=== PATIENT | female | born 1945 | race Caucasian/White ===

== ENCOUNTER 2016-07-21 15:43 | Observation (INO) | payer MEDICARE, MEDICAID ==
[~2016-07-21 15:43] MED LIST: ECOT81TA2 PO; FISH300C2 PO; LISI40TA PO; POTA-243 PO
[2016-07-21 15:45] VITALS: BP 180/84; PULSE 89; RESP 20; TEMP 98.5; O2SAT 98
--- NOTE | 2016-07-21 15:50 | PD ---
Physical Exam Date Seen by Provider: July 21, 2016 Time Seen by Provider: 15:47 Narrative 70 year old female presents to the emergency department for lightheadedness, dizziness intermittently for 2.5 months. She reports syncopal episode 05/29/16. She has history of confusion, at baseline. She reports headache for approximately 1 week. She states headache has been intermittent. Vital signs reviewed. Patient awaiting bed placement. Data Data Last Documented VS Vital Signs Date Time Temp Pulse Resp B/P Pulse Ox O2 Delivery O2 Flow Rate FiO2 07/21/16 15:45 98.5 89 20 180/84 98 MDM Supervised Visit with MARIFER: Berna Campoverde July 21, 2016 15:50
--- NOTE | 2016-07-21 16:33 | PD ---
HPI Chief Complaint: Dizziness Time Seen by Provider: 16:31 Travel History International Travel<30 days: No Contact w/Intl Traveler<30days: No Traveled to known affect area: No History of Present Illness HPI 70-year-old female with history of HTN, HLD, ND, AAA, CVA 2013 presents to the ED for evaluation of 2-3 month history of intermittent lightheadedness and dizziness. Patient also endorses left-sided dull, intermittent headache 1 week. He states that the dizziness is worse when rising from a sitting position. She also complains of left sided chest pain when lying down, accompanied by palpitations. Patient denies nausea, vomiting, diaphoresis, radiation of the pain. She states that this improved by sitting up and breathing deeply. She denies numbness, tingling, weakness, limitations to range of motion of the extremities. Denies difficulties with ambulation. Denies abdominal pain, dysuria. Patient's [id number] at bedside and states that the patient had an episode of syncope in May that was never evaluated, also states that the patient's speech is halting and broken as compared to normal. PFSH Past Medical History AAA: Yes Arthritis: No Asthma: No Blood Disorders: No Heart Rhythm Problems: No Cancer: No Cardiac Catheterization: No Cardiovascular Problems: Yes (previous chest pain episod 04/20) High Cholesterol: Yes Chest Pain: Yes Congestive Heart Failure: No COPD: No Cerebrovascular Accident: Yes (TIA 7 YEARS AGO) Diabetes: No Diminished Hearing: No Endocrine: No Gastrointestinal Disorders: Yes GERD: No Genitourinary: No Headaches: Yes Hepatitis: Yes (IS A HEPATITIS CARRIER) Hiatal Hernia: No Hypertension: Yes Immune Disorder: No Musculoskeletal: Yes (BACK PROBLEMS) Neurologic: Yes (CVA 12/2013) Psychiatric: No Reproductive: No Respiratory: No Migraines: Yes Myocardial Infarction: Yes Seizures: No Sleep Apnea: No Thyroid Disease: Yes (HYPO) Ulcer: No Menopausal: Yes : 7 Para: 6 : 1 Tubal Ligation: Yes Past Surgical History Abdominal Surgery: Yes (GALLBLADDER REMOVAL) AICD: No Cardiac Surgery: No Cholecystectomy: Yes Coronary Artery Bypass Graft: No Ear Surgery: No Endocrine Surgery: No Eye Surgery: No Genitourinary Surgery: Yes (KIDNEY STENT) Gynecologic Surgery: Yes (HYSTERECTOMY) Hysterectomy: Yes Joint Replacement: No Neurologic Surgery: Yes (C2-C6 FUSION) Oral Surgery: No Pacemaker: No Thoracic Surgery: No Other Surgery: Yes (KIDNEY SURGERY "FOR BLOCKAGE") Social History Alcohol Use: Yes (SOCIALLY) Tobacco Use: No Substance Use: No Allergies-Medications (Allergen,Severity, Reaction): Coded Allergies: Sulfa (Verified Allergy, Severe, 07/21/16) Reported Meds & Prescriptions Reported Meds & Active Scripts Active Ecotrin (Aspirin) 81 Mg Tabec 81 Mg PO DAILY 30 Days Reported Prinivil 40 mg (Lisinopril) 40 Mg Tab 1 Tab PO BID K-Dur (Potassium Chloride) 10 Meq Tabcr 10 Meq PO DAILY Fish Oil 300 Mg Cap 300 Mg PO DAILY Review of Systems Except as stated in HPI: all other systems reviewed are Neg Physical Exam Narrative GENERAL: Well-nourished, well-developed [place]ian female in no acute distress. SKIN: Focused skin assessment warm/dry. HEAD: Normocephalic. EYES: No scleral icterus. No injection or drainage. PERRLA. EOMI. ENT: Pearly gaines tympanic membranes bilaterally. Oropharynx without erythema, edema or exudate. NECK: Supple, trachea midline. No JVD or lymphadenopathy. CARDIOVASCULAR: Regular rate and rhythm without murmurs, gallops, or rubs. 2+ DP and radial pulses bilaterally. RESPIRATORY: Breath sounds clear and equal bilaterally. No accessory muscle use. GASTROINTESTINAL: Abdomen soft, non-tender, nondistended. Active bowel sounds. MUSCULOSKELETAL: No cyanosis, or edema. The patient is noted to ambulate with a normal gait. NEUROLOGICAL: Awake and alert. Cranial nerves II through XII intact. Motor and sensory grossly within normal limits. Five out of 5 muscle strength in all muscle groups. Halting speech. No pronator drift. No ataxia by finger-to- nose testing. BACK: Nontender without obvious deformity. No CVA tenderness. Data Data Last Documented VS Vital Signs Date Time Temp Pulse Resp B/P Pulse Ox O2 Delivery O2 Flow Rate FiO2 07/21/16 19:12 78 16 165/84 100 Room Air 07/21/16 15:45 98.5 Orders Electrocardiogram (07/21/16 16:45) Complete Blood Count With Diff (07/21/16 16:45) Comprehensive Metabolic Panel (07/21/16 16:45) Creatine Kinase (Cpk) (07/21/16 16:45) Prothrombin Time / Inr (Pt) (07/21/16 16:45) Act Partial Throm Time (Ptt) (07/21/16 16:45) Troponin I (07/21/16 16:45) Urinalysis - C+S If Indicated (07/21/16 16:45) Ct Brain W/O Iv Contrast(Rout) (07/21/16 16:45) Ecg Monitoring (07/21/16 16:45) Iv Access Insert/Monitor (07/21/16 16:45) Oximetry (07/21/16 16:45) Sodium Chloride 0.9% Flush (Ns Flush) (07/21/16 16:45) Sodium Chlor 0.9% 1000 Ml Inj (Ns 1000 M (07/21/16 16:45) Potassium Chloride (Kcl) (07/21/16 18:45) Urine Culture (07/21/16 17:35) Labs Laboratory Tests Test 07/21/16 07/21/16 16:58 17:35 White Blood Count 7.1 TH/MM3 Red Blood Count 4.31 MIL/MM3 Hemoglobin 11.7 GM/DL Hematocrit 35.8 % Mean Corpuscular Volume 83.2 FL Mean Corpuscular Hemoglobin 27.2 PG Mean Corpuscular Hemoglobin 32.7 % Concent Red Cell Distribution Width 14.1 % Platelet Count 253 TH/MM3 Mean Platelet Volume 8.3 FL Neutrophils (%) (Auto) 64.0 % Lymphocytes (%) (Auto) 20.8 % Monocytes (%) (Auto) 7.3 % Eosinophils (%) (Auto) 7.3 % Basophils (%) (Auto) 0.6 % Neutrophils # (Auto) 4.6 TH/MM3 Lymphocytes # (Auto) 1.5 TH/MM3 Monocytes # (Auto) 0.5 TH/MM3 Eosinophils # (Auto) 0.5 TH/MM3 Basophils # (Auto) 0.0 TH/MM3 CBC Comment DIFF FINAL Differential Comment Prothrombin Time 10.3 SEC Prothromb Time International 0.9 RATIO Ratio Activated Partial 23.4 SEC Thromboplast Time Sodium Level 143 MEQ/L Potassium Level 3.3 MEQ/L Chloride Level 103 MEQ/L Carbon Dioxide Level 33.5 MEQ/L Anion Gap 7 MEQ/L Blood Urea Nitrogen 25 MG/DL Creatinine 1.14 MG/DL Estimat Glomerular Filtration 47 ML/MIN Rate Random Glucose 100 MG/DL Calcium Level 9.3 MG/DL Total Bilirubin 0.4 MG/DL Aspartate Amino Transf 18 U/L (AST/SGOT) Alanine Aminotransferase 19 U/L (ALT/SGPT) Alkaline Phosphatase 84 U/L Total Creatine Kinase 89 U/L Troponin I LESS THAN 0.02 NG/ML Total Protein 8.6 GM/DL Albumin 4.1 GM/DL Urine Color YELLOW Urine Turbidity CLEAR Urine pH 7.5 Urine Specific [place] 1.020 Urine Protein NEG mg/dL Urine Glucose (UA) NEG mg/dL Urine Ketones NEG mg/dL Urine Occult Blood NEG Urine Nitrite NEG Urine Bilirubin NEG Urine Urobilinogen 2.0 MG/DL Urine Leukocyte Esterase NEG Urine RBC LESS THAN 1 /hpf Urine WBC LESS THAN 1 /hpf Urine Squamous Epithelial 1 /hpf Cells Urine Bacteria RARE /hpf Urine Hyaline Casts 3 /lpf Microscopic Urinalysis Comment CATH-CULTURE IND MDM Medical Decision Making Medical Screen Exam Complete: Yes Emergency Medical Condition: Yes Differential Diagnosis Vertigo versus TIA versus CVA versus ICH versus electrolyte abnormality versus dehydration versus UTI versus other Narrative Course 70-year-old female with history of HTN, HLD, ND, AAA, CVA 2013 presents to the ED for evaluation of 2-3 month history of intermittent lightheadedness and dizziness. Patient also endorses left-sided dull, intermittent headache 1 week. He states that the dizziness is worse when rising from a sitting position. She also complains of left sided chest pain when lying down, accompanied by palpitations. Patient denies nausea, vomiting, diaphoresis, radiation of the pain. She states that this improved by sitting up and breathing deeply. She denies numbness, tingling, weakness, limitations to range of motion of the extremities, difficulties with ambulation. Denies abdominal pain or dysuria. Patient's [id number] at bedside and states that the patient had an episode of syncope in May that was never evaluated, also states that the patient's speech is halting and broken as compared to normal. BP 180/84 on presentation. Physical exam reveals a nontoxic-appearing [place]ian female in no acute distress. No focal neural deficits. Subtle aphasia. Chest is clear to auscultation bilaterally. No appreciable M/R/G. Abdomen soft , nontender. No CVA tenderness. Equal pulses in the distal extremities. No lower extremity edema. Patient ambulates with a normal gait. IV was established. Patient was placed on continuous monitoring. EKG: rate 69, sinus rhythm. VT interval 187, QRS 102, QTC 402. LAD. No ST elevations or depressions. Reviewed by Dr. Bravo Cardiac enzymes: Negative 1. CBC: WBC 7.1. Hemoglobin 1.7. CMP: Potassium 3.3. BUN 25, creatinine 1.14. UA: rare bacteria. Culture pending. CT: No acute disease. Stable exam without evidence of acute infarct, hemorrhage , mass or edema per radiology read. Patient states that she takes an aspirin daily. Concerned for TIA. Plan to admit to medicine with neuro consult. Spoke to the patient and her daughter-in- law who are agreeable to this plan. Call placed to [facility]. I spoke with Dr. Noguera who agrees to accept the patient to the medicnie service. Please see medicine and neuro notes for disposition. Giovana Mas July 21, 2016 16:33
[2016-07-21] MEDS ORDERED: SODIUM CHLORIDE 0.9% FLUSH 10 ML FLUSH IVF PRN (16:45)
[2016-07-21] MEDS ORDERED: SODIUM CHLOR 0.9% 1000 ML INJ 1,000 ML IV SCH (16:45)
[2016-07-21 16:55] VITALS: O2SAT 98
[2016-07-21 17:16] LABS: AUTOMATED NEUTROPHIL # 4.6 TH/MM3 (1.8-7.7); BASOPHIL % 0.6 % (0.0-2.0); EOSINOPHIL # 0.5 TH/MM3 (0-0.4); EOSINOPHIL % 7.3 % (0.0-4.0); HEMATOCRIT 35.8 % (35.0-46.0); HEMO FLAGS DIFF FINAL; LYMPH % 20.8 % (9.0-44.0); LYMPHOCYTE # 1.5 TH/MM3 (1.0-4.8); MEAN CELL VOLUME 83.2 FL (80.0-100.0); MEAN CORPUSCULAR HEMOGLOBIN 27.2 PG (27.0-34.0); MEAN CORPUSCULAR HGB CONC 32.7 % (32.0-36.0); MONO % 7.3 % (0.0-8.0); PLATELET COUNT 253 TH/MM3 (150-450); RED BLOOD COUNT 4.31 MIL/MM3 (4.00-5.30); RED CELL DISTRIBUTION WIDTH 14.1 % (11.6-17.2); WHITE BLOOD COUNT 7.1 TH/MM3 (4.0-11.0)
[2016-07-21 17:29] LABS: APTT (PATIENT) 23.4 SEC (24.3-30.1); INTERNATIONAL NORMALIZED RATIO 0.9 RATIO; PROTHROMBIN TIME - PATIENT 10.3 SEC (9.8-11.6)
--- NOTE | 2016-07-21 17:38 | RADRPT ---
EXAM DATE/TIME: 07/21/2016 17:11 [facility] COMPARISON: CT BRAIN W/O CONTRAST, March 04, 2014, 23:52. INDICATIONS : Left sided headache for 2 weeks RADIATION DOSE: 39.63 CTDIvol (mGy) MEDICAL HISTORY : Cerebrovascular disease. Cardiovascular disease Aneurysm, abdominal. SURGICAL HISTORY : Cholecystectomy. Hysterectomy. ENCOUNTER: Initial ACUITY: 2 weeks PAIN SCALE: 6/10 LOCATION: Left cranial TECHNIQUE: Multiple contiguous axial images were obtained of the head. Using automated exposure control and adj ustment of the mA and/or kV according to patient size, radiation dose was kept as low as reasonably a chievable to obtain optimal diagnostic quality images. FINDINGS: CEREBRUM: The ventricles are normal for age. No evidence of midline shift, mass lesion, hemorrhage or acute in farction. No extra-axial fluid collections are seen. POSTERIOR FOSSA: The cerebellum and brainstem are intact. The 4th ventricle is midline. The cerebellopontine angle i s unremarkable. EXTRACRANIAL: The visualized portion of the orbits is intact. SKULL: The calvaria is intact. No evidence of skull fracture. CONCLUSION: No acute disease. Stable exam without evidence of acute infarct, hemorrhage, mass or edema. Jmaes Allison MD on July 21, 2016 at 17:35 Board Certified Radiologist. This report was verified electronically.
[2016-07-21 17:48] LABS: ALT (GPT) 19 U/L (10-53); ANION GAP 7 MEQ/L (5-15); AST (GOT) 18 U/L (15-37); BICARBONATE 33.5 MEQ/L (21.0-32.0); BLOOD UREA NITROGEN 25 MG/DL (7-18); CHLORIDE 103 MEQ/L (98-107); GLOMERULAR FILTRATION RATE 47 ML/MIN (>89); POTASSIUM 3.3 MEQ/L (3.5-5.1); SODIUM (NA) 143 MEQ/L (136-145)
[2016-07-21 17:51] LABS: ALKALINE PHOSPHATASE 84 U/L (45-117); TOTAL BILIRUBIN ADULT 0.4 MG/DL (0.2-1.0)
[2016-07-21 17:53] LABS: CREATINE KINASE 89 U/L (26-192)
[2016-07-21 18:05] LABS: BACTERIA, URINE RARE /hpf; BLOOD, URINE NEG (NEG); GLUCOSE,URINE NEG (NEG); HYALINE CAST, URINE 3 /lpf (RARE); KETONE, URINE NEG (NEG); NITRITE,URINE NEG (NEG); PH, URINE 7.5 (5.0-8.5); SQUAMOUS EPITHELIAL CELL URINE 1 /hpf (0-5); URINE COLOR YELLOW (YELLW/STRAW)
[2016-07-21 18:43] LABS: COMMENT (UR) CATH-CULTURE IND; CULTURE IF INDICATED CATH CULTURE IND
[2016-07-21] MEDS ORDERED: POTASSIUM CHLORIDE 20 MEQ CONTROLLED RELEASE TAB PO ONE (18:45)
[2016-07-21 19:12] VITALS: BP 165/84; PULSE 78; RESP 16; O2SAT 100
[2016-07-21] MEDS ORDERED: SODIUM CHLORIDE 0.9% FLUSH 10 ML FLUSH IV FLUSH PRN (20:00)
[2016-07-21 20:51] VITALS: BP 175/84; PULSE 78; RESP 19; TEMP 98.3; O2SAT 100
[2016-07-21 20:56] VITALS: PULSE 79
[2016-07-21] MEDS ORDERED: SODIUM CHLORIDE 0.9% FLUSH 10 ML FLUSH IV FLUSH SCH (21:00)
[2016-07-21 22:35] LABS: HEMOGLOBIN A1a 1.4 %; HEMOGLOBIN A1b 1.8 %; HEMOGLOBIN Ao 84.2 %; HEMOGLOBIN LA1C 2.2 %; HEMOGLOBIN P3 5.6 %
[2016-07-21 23:12] VITALS: BP 149/69; PULSE 80; RESP 19; TEMP 98.1; O2SAT 98
--- NOTE | 2016-07-22 02:35 | HHI.HP ---
HPI Service [facility] Primary Care Physician Non-Staff Admission Diagnosis dizziness, aphasia, possible TIA Diagnoses: Chief Complaint: dysphagia and dizziness Travel History International Travel<30 Days: No Contact w/Intl Traveler <30 Da: No Traveled to Known Affected Are: No History of Present Illness This is a 70 year old female patient with a past medical history which includes CVA x2, HTN, hyperlipidemia and reports she may have hepatitis C. Patient is a poor historian and only able to provide limited information. Information gathered from patient as well as prior computerized charting. Patient reports that she hasn't been, "feeling good for a couple days then yesterday got worse. " When patient asked to explain she reports that when she looks up it looks as though everything is swaying, also reports difficulty with word finding. Patient reports that both of these symptoms have been going on since her last CVA 2013. Per ER documentation patient's daughter in law reported patient's speech is halting and broken as compared to normal. Patient denies chest pain, N/V/D, fevers or chills. Review of Systems ROS Limitations: Poor Historian Except as stated in HPI: all other systems reviewed are Neg Past Family Social History Past Medical History CVA x 2, one in December 2013, the other about 7-8 years ago. Hypertension. Hyperlipidemia. reports she may have hepatitis C Past Surgical History Cholecystectomy. Kidney stent. Cervical fusion. Hysterectomy. Reported Medications Ecotrin (Aspirin) 81 Mg Tabec 81 Mg PO DAILY 30 Days Prinivil 40 mg (Lisinopril) 40 Mg Tab 1 Tab PO BID K-Dur (Potassium Chloride) 10 Meq Tabcr 10 Meq PO DAILY Fish Oil 300 Mg Cap 300 Mg PO DAILY Allergies: Coded Allergies: Sulfa (Verified Allergy, Severe, 07/21/16) Active Ordered Medications Current Medications Medications (Trade) Dose Ordered Sig/Destiny Route Start Time Stop Time Status Last Admin (NS Flush) 2 ml BID IV FLUSH 07/21/16 21:00 (NS Flush) 2 ml UNSCH PRN IV FLUSH 07/21/16 20:00 Family History She has a half sister that she believes has some type of a heart problem, but does not know what type. Social History denies alcohol, tobacco or illicit drugs. Physical Exam Vital Signs Vital Signs Date Time Temp Pulse Resp B/P Pulse Ox O2 Delivery O2 Flow Rate FiO2 07/21/16 23:12 98.1 80 19 149/69 98 07/21/16 20:56 79 07/21/16 20:51 98.3 78 19 175/84 100 07/21/16 19:12 78 16 165/84 100 Room Air 07/21/16 16:55 70 18 98 Room Air 07/21/16 16:55 98 Room Air 07/21/16 15:45 98.5 89 20 180/84 98 Physical Exam GENERAL: This is a 71 year old female patient who appear older than stated age, with soft weak appearing speech SKIN: No rashes, ecchymoses or lesions. Cool and dry. HEAD: Atraumatic. Normocephalic. No temporal or scalp tenderness. EYES: Extraocular motions intact. No scleral icterus. No injection or drainage. CARDIOVASCULAR: Regular rate and rhythm without murmurs, gallops, or rubs. RESPIRATORY: Clear to auscultation. Breath sounds equal bilaterally. No wheezes , rales, or rhonchi. GASTROINTESTINAL: Abdomen soft, non-tender, nondistended. No guarding. MUSCULOSKELETAL: Extremities without clubbing, cyanosis, or edema. No joint tenderness, effusion, or edema noted. No calf tenderness. Negative Homans sign bilaterally. NEUROLOGICAL: Awake and alert. left sided weakness per patient this is baseline after prior CVA, soft slow speech Laboratory Laboratory Tests Test 07/21/16 07/21/16 16:58 17:35 White Blood Count 7.1 Red Blood Count 4.31 Hemoglobin 11.7 Hematocrit 35.8 Mean Corpuscular Volume 83.2 Mean Corpuscular Hemoglobin 27.2 Mean Corpuscular Hemoglobin 32.7 Concent Red Cell Distribution Width 14.1 Platelet Count 253 Mean Platelet Volume 8.3 Neutrophils (%) (Auto) 64.0 Lymphocytes (%) (Auto) 20.8 Monocytes (%) (Auto) 7.3 Eosinophils (%) (Auto) 7.3 Basophils (%) (Auto) 0.6 Neutrophils # (Auto) 4.6 Lymphocytes # (Auto) 1.5 Monocytes # (Auto) 0.5 Eosinophils # (Auto) 0.5 Basophils # (Auto) 0.0 CBC Comment DIFF FINAL Differential Comment Prothrombin Time 10.3 Prothromb Time International 0.9 Ratio Activated Partial 23.4 Thromboplast Time Sodium Level 143 Potassium Level 3.3 Chloride Level 103 Carbon Dioxide Level 33.5 Anion Gap 7 Blood Urea Nitrogen 25 Creatinine 1.14 Estimat Glomerular Filtration 47 Rate Random Glucose 100 Hemoglobin A1c 5.8 Calcium Level 9.3 Total Bilirubin 0.4 Aspartate Amino Transf 18 (AST/SGOT) Alanine Aminotransferase 19 (ALT/SGPT) Alkaline Phosphatase 84 Total Creatine Kinase 89 Troponin I LESS THAN 0.02 Total Protein 8.6 Albumin 4.1 Urine Color YELLOW Urine Turbidity CLEAR Urine pH 7.5 Urine Specific [place] 1.020 Urine Protein NEG Urine Glucose (UA) NEG Urine Ketones NEG Urine Occult Blood NEG Urine Nitrite NEG Urine Bilirubin NEG Urine Urobilinogen 2.0 Urine Leukocyte Esterase NEG Urine RBC LESS THAN 1 Urine WBC LESS THAN 1 Urine Squamous Epithelial 1 Cells Urine Bacteria RARE Urine Hyaline Casts 3 Microscopic Urinalysis Comment CATH-CULTURE IND Date/Time Procedure Status Source Growth 07/21/16 17:35 Urine Culture Received Urine Catheterized Urine Pending Result Diagram: 07/21/16 1658 07/21/16 1658 Imaging Last Impressions Head CT 07/21/16 1645 Signed Impressions: Service Date/Time: Tuesday, July 21, 2016 17:11 - CONCLUSION: No acute disease. Stable exam without evidence of acute infarct, hemorrhage, mass or edema. James Allison MD Assessment and Plan Problem List: (1) Dysphagia ICD Code: R13.10 Status: Acute Assessment and Plan This is a 70 year old female patient with a past medical history which includes CVA x2, HTN, hyperlipidemia and reports she may have hepatitis C. Patient is a poor historian and only able to provide limited information. Information gathered from patient as well as prior computerized charting. Patient reports that she hasn't been, "feeling good for a couple days then yesterday got worse. " When patient asked to explain she reports that when she looks up it looks as though everything is swaying, also reports difficulty with word finding. Patient reports that both of these symptoms have been going on since her last CVA 2013. Per ER documentation patient's daughter in law reported patient's speech is halting and broken as compared to normal. TIA/CVA acute with hx of CVA Echocardiogram US bilateral carotid arteries Head of bed flat Permissive hypertension Nothing by mouth at this time awaiting speech therapy evaluation Gentle hydration with IV fluids CT of the head reviewed by myself as well as Dr. Noguera reveals No acute disease. Stable exam without evidence of acute infarct, hemorrhage, mass or edema No aspirin given- patient has sulfa allergy hypokalemia replaced in ER recheck in AM Question of hepatitis C hepatitis profile CMP in AM DVT prophylaxis with SCDs Discussed with ER provider, nursing inpatient Written by Tracy Fletcher, acting as scribe for Dr. Noguera on 07/22/16 at 03: 49. This note was transcribed by scribe [Tracy Fletcher]. I, Dr. Akil Noguera personally performed the history, physical exam, and medical decision making; and confirmed the accuracy of the information in the transcribed note. Authenticated by Dr. Akil Noguera on 07/22/16 at 03:49. Tracy Fletcher July 22, 2016 02:35 Akil Noguera MD Aug 23, 2016 12:16
[2016-07-22] MEDS ORDERED: SODIUM CHLOR 0.9% 1000 ML INJ 1,000 ML IV SCH (03:45)
[2016-07-22 03:48] VITALS: BP 148/70; PULSE 73; RESP 19; TEMP 98; O2SAT 98
[2016-07-22 06:52] LABS: ANION GAP 6 MEQ/L (5-15); AST (GOT) 14 U/L (15-37); BICARBONATE 31.2 MEQ/L (21.0-32.0); BLOOD UREA NITROGEN 18 MG/DL (7-18); CHLORIDE 107 MEQ/L (98-107); GLOMERULAR FILTRATION RATE 66 ML/MIN (>89); POTASSIUM 3.8 MEQ/L (3.5-5.1); SODIUM (NA) 144 MEQ/L (136-145)
[2016-07-22 06:56] LABS: ALKALINE PHOSPHATASE 69 U/L (45-117); ALT (GPT) 16 U/L (10-53); HDL CHOLESTEROL 41.8 MG/DL (40.0-60.0); LDL CHOLESTEROL 115 MG/DL (0-99); TOTAL BILIRUBIN ADULT 0.1 MG/DL (0.2-1.0)
[2016-07-22 07:17] VITALS: BP 142/76; PULSE 70; RESP 18; TEMP 98; O2SAT 98
[2016-07-22 07:29] VITALS: PULSE 67
--- NOTE | 2016-07-22 08:29 | HHI.PR ---
Subjective Remarks Follow up TIA 07/22/16-Patient seen and examined; Alert and oriented x 3; speech back to her baseline per daughter.Daughter is concerned about possible early onset of Dementia. patient was observed walking to the bathroom on her own. No acute event overnight Objective Vitals Vital Signs Date Time Temp Pulse Resp B/P Pulse Ox O2 Delivery O2 Flow Rate FiO2 07/22/16 07:29 67 07/22/16 07:17 98.0 70 18 142/76 98 07/22/16 03:48 98.0 73 19 148/70 98 07/21/16 23:12 98.1 80 19 149/69 98 07/21/16 20:56 79 07/21/16 20:51 98.3 78 19 175/84 100 07/21/16 19:12 78 16 165/84 100 Room Air 07/21/16 16:55 70 18 98 Room Air 07/21/16 16:55 98 Room Air 07/21/16 15:45 98.5 89 20 180/84 98 Result Diagram: 07/21/16 1658 07/22/16 0509 Imaging Last Impressions Head CT 07/21/16 1645 Signed Impressions: Service Date/Time: Thursday, July 21, 2016 17:11 - CONCLUSION: No acute disease. Stable exam without evidence of acute infarct, hemorrhage, mass or edema. James Allison MD Objective Remarks GENERAL: NAD SKIN: Warm and dry. HEAD: Normocephalic. EYES: No scleral icterus. No injection or drainage. NECK: Supple, trachea midline. No JVD or lymphadenopathy. CARDIOVASCULAR: Regular rate and rhythm without murmurs, gallops, or rubs. RESPIRATORY: Breath sounds equal bilaterally. No accessory muscle use. GASTROINTESTINAL: Abdomen soft, non-tender, nondistended. MUSCULOSKELETAL: No cyanosis, or edema. BACK: Nontender without obvious deformity. No CVA tenderness. A/P Problem List: (1) Dysphagia ICD Code: R13.10 Status: Acute (2) Hyperlipidemia ICD Code: E78.5 Status: Acute (3) Hypertension ICD Code: I10 Status: Acute Assessment and Plan 70 yrs old female with TIA/CVA acute with hx of CVA Echocardiogram US bilateral carotid arteries Head of bed flat Permissive hypertension Gentle hydration with IV fluids CT of the head without evidence of acute infarct, hemorrhage, mass or edema Check Brain MRI Resume aspirin PT/OT/Speech consult hypokalemia Resolved Hyperlipidemia LDL of 114 start Lipitor 10mg HS Question of hepatitis C hepatitis profile pending DVT prophylaxis with SCDs Discharge Planning Discharge patient to home Condition on discharge: Improved Regular Diet as tolerated Ad Shani activity Rx written: Lipitor 10 mg at bedtime, aspirin 325 mg daily Follow-up with primary care physician in one week Neurology outpatient Jt Rm MD July 22, 2016 08:28
[2016-07-22] MEDS ORDERED: ASPIRIN EC 81 MG TABEC PO SCH (09:00)
--- NOTE | 2016-07-22 09:19 | RADRPT ---
EXAM DATE/TIME: 07/22/2016 08:25 [facility] COMPARISON: No previous studies available for comparison. INDICATIONS : Cerebrovascular accident. MEDICAL HISTORY : Cerebrovascular disease. Cardiovascular disease Aneurysm, abdominal. SURGICAL HISTORY : Cholecystectomy. Hysterectomy. ENCOUNTER: Initial ACUITY: 1 day PAIN SCORE: 0/10 LOCATION: Bilateral neck PEAK SYSTOLIC VELOCITIES (cm/sec): ICA/CCA RATIO: Right: 1.0 Left: 1.3 ICA: Right: 92 Left: 105 CCA: Right: 94 Left: 81 ECA: Right: 102 Left: 135 VERTEBRAL: Right: 54 antegrade Left: 61 antegrade Elevated flow velocities and ICA/CCA ratios have been found to correlate with increased degrees of vessel stenosis, calculated as percentage of diameter relative to a normal segment of distal ICA/CCA FINDINGS: RIGHT CAROTID: No significant stenosis is visualized. The waveforms are within normal limits. LEFT CAROTID: No significant stenosis is visualized. The waveforms are within normal limits. VERTEBRAL ARTERIES: Antegrade flow is seen in both vertebral arteries. MISCELLANEOUS: None. CONCLUSION: 1. There is moderate visible calcified and noncalcified plaque present predominantly at the right car otid bifurcation. However, no hemodynamically significant stenosis is identified. Vertebral artery fl ow is antegrade. Chauncey Harrison MD on July 22, 2016 at 9:15 Board Certified Radiologist. This report was verified electronically.
[2016-07-22] MEDS ORDERED: SODIUM CHLORIDE 0.9% FLUSH 10 ML FLUSH IV FLUSH PRN (10:45)
[2016-07-22] MEDS ORDERED: ASPIRIN 325 MG TAB PO SCH (10:45)
[2016-07-22] MEDS ORDERED: GLUCAGON 1 MG/ML VIAL IM/SQ PRN (10:45)
[2016-07-22] MEDS ORDERED: DEXTROSE 50% IN WATER 50 ML VIAL(D50) IV PUSH PRN (10:45)
[2016-07-22] MEDS ORDERED: ASPI325T PO (10:47)
[2016-07-22] MEDS ORDERED: LIPI10TA PO (10:47)
[2016-07-22] MEDS ORDERED: INSULIN ASPART SUPPLEMENTAL SCALE SQ SCH (11:00)
--- NOTE | 2016-07-22 11:08 | MB ---
cc: GENNA PHILIP M.D. DATE OF CONSULTATION: 07/22/2016 REASON FOR CONSULTATION: Possible TIA. HISTORY OF PRESENT ILLNESS Ms. Yeager is a very nice 70-year-old female who has a history of migraine headaches in the past, as well as TIAs in the past. She states yesterday she woke up and noted that she had a headache on the left side of her face which is a sharp type of headache. She also had visual symptoms where she noted the environment moving, if she looked forward she had dizziness as well. She had no other neurological symptoms. No speech changes. No focal weakness or numbness. Her symptoms have since improved and she feels back to her baseline state at the present time. PAST MEDICAL HISTORY 1. She states she has had TIAs in the past. 2. History of hypertension. 3. History of migraine headaches. 4. History of stroke in 2013. 5. Hyperlipidemia. 6. Hepatitis C. 7. Cholecystectomy. 8. Kidney stent. 9. Cervical fusion. 10.Hysterectomy. MEDICATIONS At home: 1. Aspirin 81 mg daily. 2. Prinivil 40 mg b.i.d. 3. K-Dur 10 mEq daily. 4. Fish oil. ALLERGIES SULFA. NEUROLOGIC EXAMINATION VITAL SIGNS: Blood pressure is 142/76, pulse 70, respiratory rate 18, temperature 90 degrees. Higher cortical function, alert, oriented x3. Speech is fluent. She has normal recall. She follows commands. Comprehension intact. Cranial nerves are intact. There is no nystagmus. The pupils equal, reactive. The visual edouard are normal to gross confrontation. No facial asymmetry. On motor exam she has got 5/5 strength of all groups in both upper and lower extremities. There is no drift. Fine motor skills are within normal limits. Reflexes symmetric. Cerebellar testing normal. IMAGING STUDIES CT of the brain is normal for age. Carotid ultrasound: There is moderate plaque seen at the right carotid bifurcation, but no hemodynamically significant stenosis is identified. MRI brain, MRA currently pending. LABORATORY DATA White count 7100, hemoglobin 11.7, hematocrit 35%, platelet count 253,000. Sodium is 144, potassium 3.8, chloride 107, CO2 31.2, the BUN is 18, creatinine 0.86, GFR 66, glucose 93, AST 14, ALT 16, triglycerides 129, LDL 115, cholesterol 183. Urinalysis shows pH 7.5, specific gravity 1.020. IMPRESSION The episode sounds like a possible migraine or migraine equivalent with nystagmus and headache. TIA is also the differential. RECOMMENDATIONS At the present time I would recommend increasing the aspirin to 325 mg daily for the possibility of TIA. Will follow up on the MRI of the brain. If the MRI is normal with no sign of acute stroke, I feel the patient could be discharged from a neurological standpoint to home with follow up with me in the outpatient office in 1-2 weeks. Would recommend also adding a statin because of elevated LDL, in addition to increase in the aspirin to 325 mg daily. MD RITA Hubbard/DIANE /10:40 AM /10:51 AM
[2016-07-22 11:58] VITALS: O2SAT 98
--- NOTE | 2016-07-22 12:11 | RADRPT ---
EXAM DATE/TIME: 07/22/2016 11:23 [facility] COMPARISON: MRI BRAIN W/O CONTRAST, December 12, 2013, 8:57. INDICATIONS : CVA. MEDICAL HISTORY : Hypertension. Myocardial infarction. Aneurysm, abdominal. Stroke 2013. SURGICAL HISTORY : Cholecystectomy. Hysterectomy. Fusion, cervical. Kidney stent. ENCOUNTER: Initial ACUITY: 1 day PAIN SCORE: 0/10 LOCATION: Head. TECHNIQUE: Multiplanar, multisequence MRI of the brain was performed without contrast. FINDINGS: CEREBRUM: The ventricles are normal for age. No evidence of midline shift, mass lesion, hemorrhage or acute in farction. No extraaxial fluid collections are seen. The pituitary gland and suprasellar cistern are normal in configuration. WHITE MATTER: Stable scattered signal abnormalities are seen in the white matter. POSTERIOR FOSSA: The cerebellum and brainstem are intact. The 4th ventricle is midline. The cerebellopontine angle is unremarkable. The cerebellar tonsils are normal in position.DIFFUSION IMAGING: No focal areas of restricted diffusion are seen. No evidence of acute infarction. EXTRACRANIAL: The visualized portions of the orbits and paranasal sinuses are unremarkable. CONCLUSION: Mild cerebral white matter disease characteristic of microvascular ischemic changes; unchanged. No evidence of acute infarct, hemorrhage, mass or edema. James Allison MD on July 22, 2016 at 11:47 Board Certified Radiologist. This report was verified electronically.
--- NOTE | 2016-07-22 13:00 | EC ---
Study Study Date:07/22/2016 STUDY CONCLUSIONS SUMMARY - Left ventricle: The cavity size was normal. Wall thickness was normal. Systolic function was normal. The estimated ejection fraction was in the range of 55% to 60%. Wall motion was normal; there were no regional wall motion abnormalities. - Aortic valve: Valve area: 2.22cm^2 (Vmax). - Mitral valve: Mildly calcified annulus. If LV function is below 40, please consider prescribing an ACEI or ARB or document rationale for non-use. PROCEDURE DATA STUDY STATUS: Elective. Procedure: Transthoracic echocardiography. Image quality was poor. Scanning was performed from the parasternal, apical, and subcostal acoustic windows. Study completion: The patient tolerated the procedure well. Transthoracic echocardiography. M-mode, complete 2D, complete spectral Doppler, and color Doppler. Weight: Weight: 168.6lb. Patient status: Inpatient. CARDIAC ANATOMY LEFT VENTRICLE: The cavity size was normal. Wall thickness was normal. Systolic function was normal. The estimated ejection fraction was in the range of 55% to 60%. Wall motion was normal; there were no regional wall motion abnormalities. AORTIC VALVE: Trileaflet; normal thickness leaflets. Doppler: Transvalvular velocity was within the normal range. There was no stenosis. No regurgitation. Valve area: 2.22cm^2 (Vmax). AORTA: Aortic root: The aortic root was normal in size. MITRAL VALVE: Mildly calcified annulus. Doppler: Transvalvular velocity was within the normal range. There was no evidence for stenosis. No regurgitation. Peak gradient: 4mm Hg (D). LEFT ATRIUM: The atrium was normal in size. RIGHT VENTRICLE: The cavity size was normal. Wall thickness was normal. PULMONIC VALVE: Doppler: Transvalvular velocity was within the normal range. There was no evidence for stenosis. No regurgitation. TRICUSPID VALVE: Structurally normal valve. Doppler: Transvalvular velocity was within the normal range. No regurgitation. PULMONARY ARTERY: The main pulmonary artery was normal-sized. Systolic pressure was within the normal range. RIGHT ATRIUM: The atrium was normal in size. PERICARDIUM: There was no pericardial effusion. SYSTEMIC VEINS: Inferior vena cava: The vessel was normal in size. Patient weight: 168.6lb _Ejection fraction:_ 65-75% _Fractional shortening:_ 32% up to 5Kg 5-11.5Kg 11.6-22.9Kg 23-45Kg 45-57Kg Aortic Root 7-13 <17 13-22 17-27 17-27 LA diam 6-13 <23 24-38 33-47 37-40 RVID 10-17 7-15 7-15 7-18 8-17 LVIDd 12-22 <32 24-38 33-47 37-40 LVPW 2-4 3-6 5-7 6-8 7-8 IVS 2-4 3-6 5-7 6-8 7-8 BASIC MEASUREMENTS ADULT NORMAL Left ventricle LV internal dimension, ED, chordal level, *42.4 mm 43-52 PLAX LV internal dimension, ES, chordal level, 31.3 mm 23-38 PLAX Fractional shortening, chordal level, PLAX *26 % >29 LV posterior wall thickness, ED 9.08 mm IVS/LVPW ratio, ED 1.02 <1.3 Ventricular septum Septal thickness, ED 9.3 mm Aortic valve Leaflet separation 18 mm 15-26 BASIC MEASUREMENTS ADULT NORMAL Aortic valve Leaflet separation 18 mm 15-26 Aorta Root diameter, ED 30 mm 20-37 Left atrium Anterior-posterior dimension, ES 38 mm 19-40 LA/aortic root ratio 1.27 DOPPLER MEASUREMENTS ADULT NORMAL Main pulmonary artery Pressure, S 23 mm Hg =30 Aortic valve Peak velocity, S 149 cm/s Valve area, Vmax 2.22 cm^2 Mitral valve Peak E-wave velocity 93.8 cm/s Peak A-wave velocity 97.7 cm/s Deceleration time *264 ms 150-230 Peak gradient, D 4 mm Hg Peak E/A ratio 1 Tricuspid valve Regurgitant peak velocity 212 cm/s Peak RV-RA gradient, S 18 mm Hg Maximal regurgitant velocity 212 cm/s Systemic veins Estimated CVP 10 mm Hg Right ventricle RV pressure, S 28 mm Hg <30 Pulmonic valve Peak velocity, S 114 cm/s LEGEND: Mean values are shown as u=mean value. Asterisk (*) shukla values outside specified normal range. Arnulfo Mcgrath [id number]
[2016-07-22 13:46] VITALS: BP 166/78; PULSE 74; RESP 18; O2SAT 98
--- NOTE | 2016-07-22 15:49 | EKG ---
Date Performed: 07/21/2016 Time Performed: 17:23:14 PTAGE: 70 years EKG: Sinus rhythm BORDERLINE LEFT AXIS DEVIATION BORDERLINE ECG PREVIOUS TRACING : 07/22/2014 06.39 Compared to prior tracing no significant change DOCTOR: Arnulfo Pedersen Interpretating Date/Time 07/22/2016 15:46:27
[2016-07-22] MEDS ORDERED: ATORVASTATIN 10 MG TAB PO SCH (21:00)
[2016-07-22] MEDS ORDERED: SODIUM CHLORIDE 0.9% FLUSH 10 ML FLUSH IV FLUSH SCH (21:00)
== END 2016-07-22 16:23 | disposition home or self-care (01) ==
LOC: NEPC 15:43 → NEDA 19:31 → NEPGCP 20:43
PROVIDERS: ADMIT Hospitalist; ATTEND Hospitalist
DX: R42 Dizziness and giddiness (principal); R13.10 Dysphagia, unspecified; E87.6 Hypokalemia; R07.89 Other chest pain; I25.2 Old myocardial infarction; I10 Essential (primary) hypertension; E78.5 Hyperlipidemia, unspecified; I71.4 Abdominal aortic aneurysm, without rupture; E78.00 Pure hypercholesterolemia, unspecified; E03.9 Hypothyroidism, unspecified; Z86.73 Personal history of transient ischemic attack (TIA), and cerebral infarction without residual deficits; Z88.2 Allergy status to sulfonamides; Z79.82 Long term (current) use of aspirin
CPT/HCPCS: 70450; 70551; 80053; 80061; 80074; 81001; 82550; 82948; 83036; 84484; 85025; 85610; 85730; 87086; 92523; 92610; 93005; 93306; 93880; 96360; 97162; 97166; 99285; G0378; G8987; G8988; G8996; G8997; G8998; G9174; G9175; G9176; J7030